=== PATIENT | male | born 1970 | race Caucasian/White ===

== ENCOUNTER 2022-09-26 12:33 | Emergency (ER) | payer BC ==
[~2022-09-26] VITALS: Ht 177.8 cm; Wt 102.0 kg
[2022-09-26 12:50] VITALS: BP 145/104
== END 2022-09-26 16:20 | disposition home or self-care (01) ==
LOC: ER 12:34
DX: S13.4XXA Sprain of ligaments of cervical spine, initial encounter (principal); R53.1 Weakness; M54.2 Cervicalgia; Z98.890 Other specified postprocedural states; V49.60XA Unspecified car occupant injured in collision with unspecified motor vehicles in traffic accident, initial encounter; Y93.89 Activity, other specified; Y92.89 Other specified places as the place of occurrence of the external cause; Y99.8 Other external cause status
CPT/HCPCS: 99282